=== PATIENT | male | born 1960 | race Caucasian/White ===

== ENCOUNTER 2017-06-08 06:52 | Day surgery (SDC) | payer MEDICARE ==
[~2017-06-08 06:52] MED LIST: FAMOTIDINE 20MG TABLET PO ONE; MECLIZINE 25 MG TABLET PO ONE; METOCLOPRAMIDE 10 MG TABLET PO ONE
[2017-06-08] MEDS ORDERED: LIDOCAINE 2% MDV (20MG/ML) 20ML VIAL IV ONE (06:53)
[2017-06-08] MEDS ORDERED: PROPOFOL 10 MG/ML VIAL IV ONE (06:53)
[2017-06-08] MEDS ORDERED: FENTANYL PF 100MCG/2ML VIAL IV ONE (06:53)
[2017-06-08] MEDS ORDERED: OXYCODONE/APAP 10MG-325MG TABLET PO ONE (06:53)
[2017-06-08] MEDS ORDERED: DEXAMETHASONE PRESERVATIVE FREE 10MG/ML VIAL IV ONE (06:53)
[2017-06-08] MEDS ORDERED: LIDOCAINE 1% W/EPI 1:200,000 MPF 30ML SQ ONE (06:53)
[2017-06-08] MEDS ORDERED: MIDAZOLAM HCL 2MG/2ML VIAL IV ONE (06:53)
[2017-06-08] MEDS ORDERED: BUPIVACAINE 0.75% W/EPI MPF 30ML VIAL IVP ONE (06:53)
--- NOTE | 2017-06-09 15:14 | Operative Note - [place] ---
DATE OF SURGERY: 06/08/17 PREOPERATIVE DIAGNOSES: 1. POST CERVICAL LAMINECTOMY SYNDROME, ICD-10 CODE = M96.1. 2. CERVICAL SPONDYLOSIS WITHOUT MYELOPATHY, ICD-10 CODE = M47.812. OPERATION: RADIOFREQUENCY RHIZOTOMY BILATERAL CERVICAL FACETS 5-6 AND 6- 7. SURGEON: KJ LESTER D.O. ANESTHESIA: LOCAL SEDATION. ANESTHESIA PROVIDER: ROSA MARIA BUSTAMANTE CRNA. INDICATION: This patient presents with primary neck pain. Examination shows tenderness in the cervical spine. Range of motion does cause pain to the neck with extension. Diagnostic studies show surgery in the cervical spine and extensive spondylosis. A facet series and previous rhizotomy 75% pain control. Due to the failure of other therapies and the success of the rhizotomy, he is here for repeat. PROCEDURE: Intravenous line, vital sign monitoring, IV sedation, prepped, draped, sterile technique. Under imaging, the cervical facets 5-6 and 6-7 were identified and marked bilaterally. Infiltrated with local. A #20-gauge rhizotomy cannula positioned. Stimulation trials conducted. Rhizotomy burn performed. Local with anti-inflammatory into the sites. Topical antibiotics. Sterile dressing applied. We will monitor and evaluate. cc: Dr. Sheffield JOB NUMBER: [id number] MTDD
== END 2017-06-08 09:50 | disposition home or self-care (01) ==
LOC: SUR 06:52
PROVIDERS: ATTEND Pain Medicine Interventional Pain Medicine
DX: M96.1 Postlaminectomy syndrome, not elsewhere classified (principal); M47.812 Spondylosis without myelopathy or radiculopathy, cervical region
CPT/HCPCS: 64633; 64634; 01936; J1100; J3010